=== PATIENT | female | born 1955 | race Caucasian/White ===

== ENCOUNTER 2016-11-06 08:18 | Emergency (ER) | payer OTHER, MEDICARE ==
[~2016-11-06] VITALS: Ht 167.6 cm; Wt 68.0 kg
[~2016-11-06 08:18] MED LIST: BENTYL 10 MG CA10 MG PO; CEFTIN500 MG PO; LEXAPRO10 M1 PO; PENTASA500 M1 PO; PERCOCET 325 MG1 TA2 PO; VALIUM 10 MG. T10 MG PO; VALIUM5 M1 PO
[2016-11-06 08:37] LABS: ABSOLUTE BASOPHIL COUNT 0 /CUMM (0.0-0.2); ABSOLUTE EOSINOPHIL COUNT 0 /CUMM (0.0-0.7); ABSOLUTE LYMPH COUNT 1.2 /CUMM (1.2-3.4); ABSOLUTE MONOCYTE COUNT 0.2 /CUMM (0.10-0.60); BASOPHIL % 0.2 % (0.0-2.0); EOSINOPHIL % 0 % (0-5); GRANULOCYTE % 92.3 % (42.2-75.2); HEMATOCRIT 43.1 % (37-47); MEAN CORPUSCULAR HGB 29.8 PG (27.0-31.0); MEAN CORPUSCULAR HGB CONC 32.9 G/DL (33.0-37.0); MEAN CORPUSCULAR VOLUME 90.5 FL (81.0-99.0); MEAN PLATELET VOLUME 8.4 FL (7.4-10.4); PLATELET COUNT 373 /CUMM (130-400); RBC DISTRIBUTION WIDTH 14.1 % (11.5-14.5); RED BLOOD CELL CT 4.76 /CUMM (4.20-5.40); WHITE BLOOD CELL COUNT 18.4 /CUMM (4.8-10.8)
--- NOTE | 2016-11-06 08:42 | ED GI/GU/ABDOMINAL COMPLAINT ---
History of Present Illness General Chief Complaint: Nausea, Vomiting, Diarrhea Stated Complaint: N/V/D Source: patient Exam Limitations: no limitations Vital Signs & Intake/Output Vital Signs & Intake/Output ED Intake and Output 11/07 0000 11/06 1200 Intake Total 1000 Output Total Balance 1000 Intake, IV 1000 Patient 150 lb Weight Allergies Coded Allergies: Penicillins (UNKNOWN 11/06/16) Reconcile Medications Amlodipine Besylate 10 MG TABLET 1 TAB PO DAILY HEART (Reported) Ciprofloxacin HCl (Cipro) 500 MG TABLET 1 TAB PO BID COLITIS Diazepam 10 MG TABLET 1 TAB PO DAILY PRN ANXIETY (Reported) Dicyclomine HCl 10 MG CAPSULE 1 CAP PO TID GI (Reported) Escitalopram Oxalate (Lexapro) 10 MG TABLET 1 TAB PO DAILY MENTAL HEALTH ( Reported) Hydrocodone/Acetaminophen (Vicodin 5-300 MG Tablet) 5 MG-300 MG TABLET 1 TAB PO BID PRN PAIN Mesalamine (Pentasa) 500 MG CAPSULE.ER 1 TAB PO Q6 CROHNS (Reported) Metronidazole (Flagyl) 500 MG TABLET 1 TAB PO TID COLITIS Ondansetron HCl (Zofran) 4 MG TABLET 1 TAB PO Q6-8P PRN NAUSEA Triage Note: PT STATES THAT SHE HAS HISTORY OF CHROHNS AND THAT FOR THE POST 7 HOURS SHE HAS BEEN VOMITTING YELLOW FLUID AND HAS DIARHEA, 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 Triage Nurses Notes Reviewed? yes ? N Is pt currently ? No Onset: Abrupt Duration: constant Timing: single episode today Severity Numbers: 10 Location: left lower quadrant HPI: Patient is a 61-year-old female with past medical history of Crohn's disease who presents emergency room stating that at 1 AM this morning while sleeping she had acute onset of left abdominal quadrant pain with associated symptoms of persistent nausea and multiple episodes of nonbloody nonbilious emesis and loose watery diarrhea production. Patient denies any previous ingestion of exotic foods. Patient has been unable tolerate anything by mouth. Patient has had no concerns of bowel movements of bright red blood or melena. Positive for chills denies any fevers. Denies any shortness of breath and pain dysuria hematuria vaginal bleeding or discharge. And IN past few hours patient now complains of generalized abdominal pain (MARY ROMERO) Past History Travel History Traveled to [place] past 21 day No Medical History Any Pertinent Medical History? 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 No (MARY ROMERO) Review of Systems Review of Systems Constitutional: Reports: see HPI, chills. EENTM: Reports: no symptoms. Respiratory: Reports: no symptoms. Cardiovascular: Reports: no symptoms. GI: Reports: see HPI, abdominal pain, nausea, vomiting. Genitourinary: Reports: no symptoms. Musculoskeletal: Reports: no symptoms. Skin: Reports: no symptoms. Neurological/Psychological: Reports: no symptoms. Hematologic/Endocrine: Reports: no symptoms. Immunologic/Allergic: Reports: no symptoms. All Other Systems: Reviewed and Negative (MARY ROMERO) Physical Exam Physical Exam General Appearance: moderate distress Gastrointestinal: normal bowel sounds, soft, GENERALIZED MODERATE POINT TENDERNESS Comments: HEENT: Normal EENT exam Neck: Supple, no lymphadenopathy, normal range of motion without pain or tenderness Back: Nontender, no CVA tenderness. Cardiovascular: Regular rate and rhythms no murmurs rubs or gallops, normal JVP Respiratory: Chest nontender. No respiratory distress.breath sounds clear to auscultation bilaterally Extremity: No edema, no calf tenderness to palpation, normal and equal pulses. Neuro: Alert oriented x3, motor sensory normal, Skin: No appreciable rash on exposed skin, skin is warm and dry. Psych: Mood and affect is normal, memory and judgment is normal. Core Measures ACS in differential dx? No Severe Sepsis Present: No Septic Shock Present: No (MARY ROMERO) Progress Differential Diagnosis: AAA, AMI, appendicitis, biliary colic, bowel obstruction , colon cancer, cholecystitis, diverticulitis, endometritis, esophageal varices, gastritis, hepatitis, hernia, ischemic bowel, inflamm bowel dis, kidney stone, Kayla-Zak tear, ovarian cyst, ovarian torsion, pancreatitis, PID/cervicitis, peptic ulcer, PUD/GERD, perforated viscous, SBO, UTI/pyelo Plan of Care: Orders Procedure Date/time Status LACTIC ACID 11/06 1123 Complete LIPASE 11/06 08 Complete LACTIC ACID 11/06 08 Complete COMPREHENSIVE METABOLIC PANEL 11/06 822 Complete CBC WITHOUT DIFFERENTIAL 11/06 822 Complete AMYLASE 11/06 822 Complete Laboratory Tests 11/06/16 1216: Lactic Acid 1.8 11/06/16 0828: Anion Gap 14, Estimated GFR > 60, BUN/Creatinine Ratio 35.0 H, Glucose 183 H, Lactic Acid 2.1, Calcium 10.1, Total Bilirubin 0.4, AST 16, ALT 29, Alkaline Phosphatase 145 H, Total Protein 7.8, Albumin 4.5, Globulin 3.3, Albumin/ Globulin Ratio 1.4, Amylase 56, Lipase 149, CBC w Diff MAN DIFF ORDERED, RBC 4.76, MCV 90.5, MCH 29.8, RDW 14.1, MPV 8.4, Gran % 92.3 H, Lymphocytes % 6.5 L, Monocytes % 1.0 L, Eosinophils % 0, Basophils % 0.2, Absolute Granulocytes 17.0 H, Absolute Lymphocytes 1.2, Absolute Monocytes 0.2, Absolute Eosinophils 0, Absolute Basophils 0, Normocytic RBCs VERIFIED, Normochromic RBCs VERIFIED, PUBS MCHC 32.9 L Patient on this examination noted to be in significant distress and actively vomiting. 11/06/2016 10:58:01 AM reexamination the patient she had complete resolution of nausea and vomiting. Patient had moderate resolution of abdominal pain. Patient resting comfortably CT scan currently pending CT scan was showing concerns of biliary duct dilation or patient has no right upper quadrant pain bilirubin and LFTs were normal. Patient also had complete resolution of presenting complaints. Patient was requesting to be discharged. I discussed patient lab values and CT scan with patient's social media marketing analyst Dr. Riddle who advised patient to follow-up in office in 2 days as she has an appointment and to begin Cipro Flagyl Upon discharge patient looks well no apparent distress and will comply with discharge instructions and had no questions. Discussed disposition plan with DR. WOODWARD who agrees (MARIBETH BISHOP,MARY) Diagnostic Imaging: Viewed by Me: CT Scan. Radiology Impression: SEE COMMENTS Initial ED EKG: none Comments: PATIENT: VANE,ARNOLD PRESENT AGE: 61 PATIENT ACCOUNT NO: [id number] : 53 LOCATION: [facility] ORDERING PHYSICIAN: MARY BISHOP SERVICE DATE: 11/06/16 EXAM TYPE: CAT - CT ABD & PELVIS W IV CONTRAST EXAMINATION: CT ABDOMEN AND PELVIS WITH CONTRAST CLINICAL INFORMATION: 61-year-old female patient with Crohn's disease. Presents with left quadrant pain. COMPARISON: CT exams of the abdomen and pelvis performed in December 2008, August 2010, December 2014, and April 2015. TECHNIQUE: Multidetector volumetric imaging was performed of the abdomen and pelvis before and after the IV administration of 95 mL of Optiray 320 intravenous contrast. Sagittal and coronal reformatted images were obtained on the technologist's workstation. DLP: 275 mGy-cm FINDINGS: Director Of Labor Relations: The abdomen is relatively gasless. LUNG BASES: The visualized lung bases are unremarkable. There is a small pericardial effusion. The patient is known to have this finding on prior exams the volume is not significant. There is a small hiatal hernia. LIVER, GALLBLADDER, AND BILIARY TREE: The liver is normal in size, shape, and attenuation. No focal lesion is present. There is very mild dilatation of the intrahepatic. ducts and the common bile duct measures 8 mm in the head of the pancreas. No definite radiopaque stones are seen. The gallbladder is somewhat contracted and the wall shows enhancement. However, no pericholecystic inflammatory reaction is seen. This appearance is similar to that seen in 2011. PANCREAS: Unremarkable. SPLEEN: Tiny hypodense foci are present in the tip of the spleen of uncertain significance. These were present in 2011. ADRENAL GLANDS: Unremarkable. KIDNEYS AND URETERS: The kidneys are normal in size, shape, and attenuation. No hydronephrosis, hydroureter, or calculi seen. No perinephric stranding. BLADDER: Partially filled and unremarkable. GASTROINTESTINAL TRACT: The stomach is normal. The terminal ileum is normal. No pericecal inflammatory reaction is seen. The colon is generally collapsed throughout its course. Submucosal fatty deposition is seen in the right colon. This could be normal or a sign of prior inflammation. Of particular note is the recruitment of the vasa recta of the colon and therefore, this could correspond to subacute inflammatory bowel disease such as Crohn's colitis. There is no free fluid or free air. The vasa rectae are also prominent in loops of small bowel in the midabdomen. Series 602, image 32. However, the bowel wall does not appear to be abnormally thickened. ABDOMINAL WALL: No significant hernia is appreciated. LYMPH NODES: Normal. VASCULAR: Unremarkable. PELVIC VISCERA: The retroverted uterus is normal in size and shape. OSSEOUS STRUCTURES: Unremarkable. IMPRESSION: 1. Very mild intrahepatic bile duct dilatation. The common bile duct is prominent at 8 mm. Cause unknown. 2. Significant recruitment of the vasa rectae of the colon which could indicate subacute colitis. DICTATED BY: KENNETH THOMAS MD DATE/TIME DICTATED:11/06/161100 CHECK GRADER:JAMILAH DATE/TIME TRANSCRIBED:11/06/161100 (MARY ROMERO) Departure Departure Disposition: HOME OR SELF CARE Condition: Stable Clinical Impression Primary Impression: Colitis Secondary Impressions: Abdominal pain Referrals: SUZETTE CRUMP MD (PCP/Family) Additional Instructions: As discussed follow-up with your established social media marketing analyst Dr. Riddle on as you have an appointment. If symptoms worsen return to the emergency room. Please provide your social media marketing analyst with copies of blood work and CT scan provided to you in the emergency room. begin the prescription of Cipro and Flagyl for the full course prescription of Zofran for nausea and Vicodin for pain. Begin a 24-hour clear liquid and bland diet. Prescription is waiting at [facility] Departure Forms: Customer Survey General Discharge Information Prescriptions: Current Visit Scripts Ciprofloxacin HCl (Cipro) 1 TAB PO BID #20 TAB Ondansetron HCl (Zofran) 1 TAB PO Q6-8P PRN NAUSEA #15 TAB Metronidazole (Flagyl) 1 TAB PO TID #30 TAB Hydrocodone/Acetaminophen (Vicodin 5-300 MG Tablet) 1 TAB PO BID PRN PAIN #4 TAB (MARY ROMERO) PA/CONFERENCE CENTER MANAGER Co-Sign Statement Statement: ED Attending supervision documentation- [] I saw and evaluated the patient. I have also reviewed all the pertinent lab results and diagnostic results. I agree with the findings and the plan of care as documented in the PA's/CONFERENCE CENTER MANAGER's documentation. [X] I have reviewed the ED Record and agree with the PA's/CONFERENCE CENTER MANAGER's documentation. [] Additions or exceptions (if any) to the PAs/CONFERENCE CENTER MANAGER's note and plan are summarized below: [] (TRACE HARRELL,EDDIE)
--- NOTE | 2016-11-06 11:42 | CT SCAN REPORT ---
EXAMINATION: CT ABDOMEN AND PELVIS WITH CONTRAST CLINICAL INFORMATION: 61-year-old female patient with Crohn's disease. Presents with left quadrant pain. COMPARISON: CT exams of the abdomen and pelvis performed in December 2008, August 2010, December 2014, and April 2015. TECHNIQUE: Multidetector volumetric imaging was performed of the abdomen and pelvis before and after the IV administration of 95 mL of Optiray 320 intravenous contrast. Sagittal and coronal reformatted images were obtained on the technologist's workstation. DLP: 275 mGy-cm FINDINGS: Channel Opener: The abdomen is relatively gasless. LUNG BASES: The visualized lung bases are unremarkable. There is a small pericardial effusion. The patient is known to have this finding on prior exams the volume is not significant. There is a small hiatal hernia. LIVER, GALLBLADDER, AND BILIARY TREE: The liver is normal in size, shape, and attenuation. No focal lesion is present. There is very mild dilatation of the intrahepatic. ducts and the common bile duct measures 8 mm in the head of the pancreas. No definite radiopaque stones are seen. The gallbladder is somewhat contracted and the wall shows enhancement. However, no pericholecystic inflammatory reaction is seen. This appearance is similar to that seen in 2011. PANCREAS: Unremarkable. SPLEEN: Tiny hypodense foci are present in the tip of the spleen of uncertain significance. These were present in 2011. ADRENAL GLANDS: Unremarkable. KIDNEYS AND URETERS: The kidneys are normal in size, shape, and attenuation. No hydronephrosis, hydroureter, or calculi seen. No perinephric stranding. BLADDER: Partially filled and unremarkable. GASTROINTESTINAL TRACT: The stomach is normal. The terminal ileum is normal. No pericecal inflammatory reaction is seen. The colon is generally collapsed throughout its course. Submucosal fatty deposition is seen in the right colon. This could be normal or a sign of prior inflammation. Of particular note is the recruitment of the vasa recta of the colon and therefore, this could correspond to subacute inflammatory bowel disease such as Crohn's colitis. There is no free fluid or free air. The vasa rectae are also prominent in loops of small bowel in the midabdomen. Series 602, image 32. However, the bowel wall does not appear to be abnormally thickened. ABDOMINAL WALL: No significant hernia is appreciated. LYMPH NODES: Normal. VASCULAR: Unremarkable. PELVIC VISCERA: The retroverted uterus is normal in size and shape. OSSEOUS STRUCTURES: Unremarkable. IMPRESSION: 1. Very mild intrahepatic bile duct dilatation. The common bile duct is prominent at 8 mm. Cause unknown. 2. Significant recruitment of the vasa rectae of the colon which could indicate subacute colitis.
[2016-11-06 11:48] VITALS: BP 145/75
[2016-11-06] MEDS ORDERED: DICYCLOMINE HCL10 M1 PO (11:59)
[2016-11-06] MEDS ORDERED: AMLODIPINE BESY10 M1 PO (11:59)
[2016-11-06] MEDS ORDERED: DIAZEPAM10 M1 PO (12:01)
[2016-11-06] MEDS ORDERED: CIPRO500 M1 PO (12:50)
[2016-11-06] MEDS ORDERED: ZOFRAN4 M2 PO (12:50)
[2016-11-06] MEDS ORDERED: VICODIN 5-3001 EACH PO (12:51)
[2016-11-06] MEDS ORDERED: FLAGYL500 MG PO (12:51)
== END 2016-11-06 12:59 ==
LOC: ERH 08:18
PROVIDERS: Emergency Medicine
DX: K52.9 Noninfective gastroenteritis and colitis, unspecified (principal)
CPT/HCPCS: 36415; 74177; 96374; 96375; 96376; J2405

== ENCOUNTER 2017-07-03 09:00 | Emergency (ER) | payer OTHER, MEDICARE ==
[~2017-07-03 09:00] MED LIST changes: +AMLODIPINE BESY10 M1 PO; +CIPRO500 M1 PO; +DIAZEPAM10 M1 PO; +DICYCLOMINE HCL10 M1 PO; +FLAGYL500 MG PO; +LOMOTIL 2.5-0.1 EACH PO; +ONDANSETRON HCL8 MG PO; +OXYCODONE-ACET1 EAC1 PO; +VICODIN 5-3001 EACH PO; +ZOFRAN ODT4 M1 SL; +ZOFRAN4 M2 PO
--- NOTE | 2017-07-03 09:08 | ED UPPER/LOWER EXTREMITY COMPL ---
History of Present Illness General Chief Complaint: Foot or Ankle Injury Stated Complaint: RIGHT ANKLE PAIN, S/P FALL Source: patient Exam Limitations: no limitations Vital Signs & Intake/Output Vital Signs & Intake/Output Vital Signs Date Time Temp Pulse Resp B/P B/P Pulse O2 O2 Flow FiO2 Mean Ox Delivery Rate 07/03 1024 98.6 76 18 126/84 98 Room Air 07/03 0905 96.8 91 16 132/89 98 Room Air Allergies Coded Allergies: Penicillins (HIVES, DYSPNEA 01/30/17) Reconcile Medications Amlodipine Besylate 10 MG TABLET 1 TAB PO DAILY BP (Reported) Dicyclomine HCl (Unknown Strength) CAPSULE (Unknown Dose) PO TID GI (Reported ) Diphenoxylate HCl/Atropine (Lomotil 2.5-0.025 MG Tablet) 2.5 MG-0.025 MG TABLET 1-2 TAB PO 4 TIMES/DAY PRN diarrhea twenty...[id number] Hydrocodone/Acetaminophen (Vicodin 5-300 MG Tablet) 5 MG-300 MG TABLET 1 TAB PO BID PRN pain Hydrocodone/Acetaminophen (Vicodin 5-300 MG Tablet) 5 MG-300 MG TABLET 1 TAB PO TID PRN pain fifteen...[id number] Hydrocodone/Acetaminophen (Vicodin 5-300 MG Tablet) 5 MG-300 MG TABLET 1 TAB PO BID PRN PAIN Mesalamine (Pentasa) 500 MG CAPSULE.ER 1 TAB PO Q6 CROHNS (Reported) Ondansetron (Zofran Odt) 4 MG TAB.RAPDIS 1 TAB SL TID PRN nausea Ondansetron HCl 8 MG TABLET 1 TAB PO TID PRN N/V (Reported) Oxycodone HCl/Acetaminophen (Oxycodone-Acetaminophen 10-325) 10 MG-325 MG TABLET 1 TAB PO AD PRN PAIN (Reported) Triage Note: PT TO ED S/P SLIP AND FALL, STATES HER RT ANKLE GOT CAUGHT IN THE SPINDLE. DENIES ANY HEAD STRIKE OR LOC. RT ANKLE HAS 10/10 PAIN PER PT, NOTED SWELLING TO RT ANKLE. +CMS. Triage Nurses Notes Reviewed? yes Onset: Abrupt Duration: constant Timing: single episode today Severity: severe Severity Numbers: 7 HPI: Patient is a 61-year-old female with a past medical history of Crohn's who presented to emergency room that she was walking outside [employer] and down steps with boots she tripped and twisted her right ankle causing acute onset of right lateral ankle and foot pain and swelling. Patient does state that she drove here however states and granulation palpation makes it worse, Tylenol was given prior to arrival Denies any other injury denies any knee upper extremity pain head strike back or neck pain. Skin still intact. Past History Travel History Traveled to [place] past 21 day No Medical History Any Pertinent Medical History? 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 No Review of Systems Review of Systems Constitutional: Reports: no symptoms. EENTM: Reports: no symptoms. Respiratory: Reports: no symptoms. Cardiovascular: Reports: no symptoms. Gastrointestinal/Abdominal: Reports: no symptoms. Genitourinary: Reports: no symptoms. Musculoskeletal: Reports: see HPI, joint pain, joint swelling. Skin: Reports: no symptoms. Neurological/Psychological: Reports: no symptoms. Hematologic/Endocrine: Reports: no symptoms. Immunological: Reports: no symptoms. All Other Systems: Reviewed and Negative Physical Exam Physical Exam General Appearance: no apparent distress, alert, comfortable Head: atraumatic Eyes: Bilateral: normal appearance. Ears, Nose, Throat: hearing grossly normal Neck: normal inspection Cardiovascular/Respiratory: no respiratory distress Peripheral Pulses: 2+ dorsalis pedis (R) Back: normal inspection Neurologic/Tendon: normal sensation, normal motor functions, normal tendon functions, responds to pain, no evidence tendon injury, no pulse deficit Skin: intact, normal color Comments: Right knee normal inspection nontender full active range of motion Right ankle lateral malleoli point tenderness and swelling decreased active range of motion Right foot noted lateral swelling and pain PT pulses +2 dermatomes intact Progress Differential Diagnosis: arterial insufficiency, compartment syndrome, contusion, dislocation, DVT, fracture, gout, septic arthritis, sprain, tendon injury Plan of Care: Orders Procedure Date/time Status Durable Medical Equipment 07/03 0852 Active Patient on initial examination was resting comfortably neurovascular intact to right lower extremity x-rays will be obtained x-rays show concerns of talus fracture discussed x-ray results with patient splint was applied and crutches were administered patient was strongly advised to follow-up with orthopedic doctor Diagnostic Imaging: Viewed by Me: Radiology Read. Radiology Impression: acute abnormality, fracture Departure Departure Disposition: HOME OR SELF CARE Condition: Stable Clinical Impression Primary Impression: Talar fracture Secondary Impressions: Right ankle sprain Referrals: Aden HARRELL,Tien Herron (PCP/Family) Uriel HARRELL,[place] Additional Instructions: As discussed begin elevating the foot for swelling continue use the splint has been applied to in the emergency room at all times until you follow up with the orthopedic doctor, tomorrow please follow up with orthopedic Dr. Trevnio for further evaluation and treatment. Continue [id number] Tylenol for pain and inflammation begin using the crutches until YOU can walk without pain if symptoms worsen return to emergency room Begin the prescription of Vicodin for breakthrough pain Prescription is waiting at [place] [facility] Departure Forms: Customer Survey General Discharge Information Prescriptions: Current Visit Scripts Hydrocodone/Acetaminophen (Vicodin 5-300 MG Tablet) 1 TAB PO BID PRN PAIN #8 TAB Procedures Splinting Location: RIGHT FOOT Manual Alignment Performed: No Hand-Made Type: orthoglass Splint: POSTERIOR ANKLE Splint Applied By: splint applied by me Pre-Proc Neuro Vasc Exam: normal Post-Proc Neuro Vasc Exam: normal
--- NOTE | 2017-07-03 09:53 | RADIOLOGY REPORT ---
EXAMINATION: XR FOOT, RIGHT XR ANKLE, RIGHT CLINICAL INFORMATION: Slip and fall. Right ankle and foot pain. COMPARISON: None TECHNIQUE: AP, lateral and oblique views of the right foot. AP, lateral and oblique views of the right ankle. FINDINGS: Cortical irregularity and faint lucencies are noted on the dorsal aspect of the talus anteriorly seen only on the lateral views with overlying soft tissue swelling, findings are consistent with nondisplaced talar fracture. No additional fractures are noted in the ankle and pelvis. Bones are in normal alignment. There is a small ankle joint effusion. Tiny plantar calcaneal spur is noted at the insertion of plantar aponeurosis. Mild degenerative changes are noted at the first MTP joint. IMPRESSION: Nondisplaced right talar fracture along the dorsal cortex anteriorly. No additional fractures in the right ankle and right foot.
[2017-07-03] MEDS ORDERED: VICODIN 5-3001 EACH PO (10:11)
[2017-07-03 10:24] VITALS: BP 126/84
== END 2017-07-03 10:24 ==
LOC: ERH 09:00
DX: S92.101A Unspecified fracture of right talus, initial encounter for closed fracture (principal); S93.401A Sprain of unspecified ligament of right ankle, initial encounter; W22.8XXA Striking against or struck by other objects, initial encounter; X50.9XXA Other and unspecified overexertion or strenuous movements or postures, initial encounter; Y93.01 Activity, walking, marching and hiking; Y92.9 Unspecified place or not applicable
CPT/HCPCS: 73610-RT; 73630-RT